=== PATIENT | female | born 1940 | race Caucasian/White ===

== ENCOUNTER 2017-07-06 10:15 | Emergency (ER) | payer MEDICARE, OTHER ==
[2017-07-06] MEDS ORDERED: Lorazepam 2 MG/ML VIAL ONE ×2 (12:09→12:42)
--- NOTE | 2017-07-06 15:48 | MRI ---
MRI CERVICAL SPINE WITHOUT CONTRAST: Date: 07/06/17 Multiplanar, multisequential imaging of cervical spine obtained. INDICATION: Recent neck injury. CT showed severe degenerative changes of cervical spine with subluxations. Slight flaring of the spinous processes at C3-4 was noted. Exam performed to assess for ligamentous injury. FINDINGS: Motion artifact severely degrades the exam. The cervical vertebra maintain height. There are subluxat ions again seen as described on the CT. On the STIR sequence, no significant edema is seen within the interspinous ligaments or supraspinous ligament. No evidence of edema seen along either the anterior or posterior longitudinal ligament. There is evidence of edema within the C5 and C6 vertebra on STIR sequence. This could represent qureshi es from acute compression as both of these show some mild height loss, or this edema could also repre sent chronic end plate change. A lack of edema within the interspinous ligaments and along the anterior or posterior longitudinal li gament would suggest that the cervical spine findings are chronic and there is no evidence of acute l igamentous injury. The spondylytic changes do impinge on the cord, most pronounced at C4-5 due to the subluxation. IMPRESSION: 1. No evidence of edema in the interspinous ligaments or along the anterior and posterior longitudin al ligament. 2. There is increased signal on STIR sequence within the C5 and C6 vertebra. This could represent ac carlos compression. This high signal could also represent edema from chronic end plate degenerative britton ge. POS: [facility]
== END 2017-07-06 17:46 | disposition home or self-care (01) ==
LOC: ERS 10:15
DX: M48.32 Traumatic spondylopathy, cervical region (principal); I10 Essential (primary) hypertension; E78.5 Hyperlipidemia, unspecified; F32.9 Major depressive disorder, single episode, unspecified; G30.9 Alzheimer's disease, unspecified; F02.80 Dementia in other diseases classified elsewhere, unspecified severity, without behavioral disturbance, psychotic disturbance, mood disturbance, and anxiety; Z79.82 Long term (current) use of aspirin; Z79.899 Other long term (current) drug therapy; Z86.73 Personal history of transient ischemic attack (TIA), and cerebral infarction without residual deficits; W19.XXXA Unspecified fall, initial encounter
CPT/HCPCS: 72141; 96372; 96374; 96375; 96376; J2060

== ENCOUNTER 2017-07-15 10:59 | Inpatient (IN) | payer MEDICARE, OTHER ==
[2017-07-15 12:10] LABS: #Lymphocytes 0.6 thou/uL (1.20-3.40); #Monocytes 0.6 thou/uL (0.11-0.59); #Neutrophils 10.7 thou/uL (1.40-6.50); %Basophils 0.1 % (0.0-1.0); %Eosinophils 0.2 % (0.0-10.0); %Lymphocytes 5.3 % (21.0-51.0); %Monocytes 4.7 % (0.0-10.0); %Neutrophils 89.8 % (42.0-75.0); Hemoglobin 8.8 g/dL (12.0-16.0); Mean Corpuscular HGB CONC 32.7 g/dL (32.0-36.0); Mean Corpuscular Volume 97.8 fl (81.0-99.0); Mean Platelet Volume 6.2 fL (7.4-10.4); Platelet Count 328 thou/uL (130-400); RBC Distribution Width 12.5 % (11.5-14.5); Red Blood Cell (RBC) Count 2.74 mill/uL (4.20-5.40); White Blood Cell (WBC) Count 11.9 thou/uL (4.8-10.8)
--- NOTE | 2017-07-15 12:21 | RAD ---
AP PELVIS: Date: 07/15/17 HISTORY: Injury, right hip pain. FINDINGS/IMPRESSION: There is an impacted fracture involving the neck of the right femur with associated foreshortening. POS: [facility]
[2017-07-15 12:30] LABS: Bilirubin Negative (Negative); Blood, Urine Negative (Negative); Clarity CLEAR (Clear); Glucose, Urine (Dipstick) Negative (Negative); Leukocyte Negative (Negative); Nitrite Negative (Negative); Protein, Urine (Dipstick) 30 mg/dL (Neg-Trace); Specific Gravity, Urine 1.018 (1.002-1.036); Urobilinogen 0.2 mg/dL (0.2-1.0)
[2017-07-15 12:31] LABS: Bacteria/HPF None Seen HPF (None Seen); Hyaline Casts/LPF 0-3 HYALINE CAST LPF (0-3 Hyaline); Pathc Cast-AUWi Flag 0.14 (0-2.49); RBC/HPF 0-3 HPF (0-3); Squamous Epithelial 0-3 HPF (0-3); WBC/HPF 0-3 HPF (0-3)
[2017-07-15 12:36] LABS: ALT (SGPT) 12 U/L (8-55); AST (SGOT) 20 U/L (5-34); Albumin 3.6 g/dL (3.4-4.8); Alkaline Phosphatase 85 U/L (40-150); Anion Gap 14 mmol/L (10-20); BUN (Urea Nitrogen) 31 mg/dL (9.8-20.1); Bilirubin, Total 0.4 mg/dL (0.2-1.2); Calc. Creatinine Clearance 0 mL/min (70-130); Calcium 9.2 mg/dL (7.8-10.44); Carbon Dioxide 23 mmol/L (23-31); Chloride 101 mmol/L (98-107); Estimated GFR-MDRD 24; Globulin 3.1 g/dL (2.4-3.5); Glucose 132 mg/dL (83-110); Potassium 4.6 mmol/L (3.5-5.1); Protein, Total 6.7 g/dL (6.0-8.3); Sodium 133 mmol/L (136-145)
--- NOTE | 2017-07-15 12:39 | RAD ---
TWO VIEWS RIGHT KNEE: History: Trauma. Right knee pain. FINDINGS: AP, lateral, and oblique views demonstrate a right knee arthroplasty. Femoral and tibial components a re in good position. No evidence of fractures or loosening seen. IMPRESSION: No evidence of acute right knee abnormalities in a patient with previous arthroplasty. POS: [facility]
--- NOTE | 2017-07-15 12:40 | RAD ---
TWO VIEWS RIGHT HIP: History: Fall. FINDINGS: AP and lateral views demonstrate a displaced partially impacted right femoral neck fracture. There is upward migration of the distal fracture fragment. Displaced complete right femoral neck fracture. POS: [facility]
--- NOTE | 2017-07-15 12:41 | RAD ---
AP AND LATERAL RIGHT FEMUR: History: Fall. Right hip pain. FINDINGS: Images demonstrate a right knee arthroplasty. There is an acute fracture involving the right femoral neck. There is upward migration of the distal fracture fragment. IMPRESSION: Complete right femoral neck fracture. POS: [facility]
--- NOTE | 2017-07-15 12:43 | RAD ---
AP VIEW CHEST: INDICATIONS: History of fall and chest pain. COMPARISON: Prior exam, 05/03/2014. FINDINGS: There is a patchy area of opacity, which is new, within the region of the lingula, which may reflect an area of contusion or possible infiltrate. Chronic lung changes are similar. Cardiomegaly is petra lar. Osseous structures are unchanged. IMPRESSION: Patchy opacity within the region of the lingula, which may reflect contusion or pneumonia. Recommend correlation. Radiographic followup to resolution is recommended. POS: [facility]
[2017-07-15] MEDS ORDERED: CEFAZOLIN/Water 2 GM/20 ML SYRINGE SLOW IVP SCH (14:30)
--- NOTE | 2017-07-15 14:39 | HP ---
DATE OF ADMISSION: 07/15/2017 ADMITTING PHYSICIAN: Dr. Casey. CONSULTING PHYSICIANS: 1. Dr. Sanchez, Orthopedics. 2. Hospital Medicine Service. HISTORY OF PRESENT ILLNESS: Ms. Joseph is a 77-year-old female who presented approximately 1 week ago to [facility] after a ground level fall. She was then transferred to [facility] with complaints of neck pain. She was found to have a C3-4 subluxation. She was placed in an [place] cervical collar and discharged back home to her previous living situation in an assisted living facility in [place], [place]. She had no neurological deficits. She was to follow up with Neurosurgery on 07/23/2017. Her daughter reports that she had another fall last night and was taken [facility] and then discharged home. She continued to complain of right hip pain. She was then transported to [facility] in [place] where right femoral neck fracture was identified. Her daughter reports that she fell twice last p.m. prior to being transported to the hospital. She is noted to have old bruising across her face and upper extremities. She does complain of right hip pain which is exacerbated by movement. Trauma Services was consulted for admission and management. Dr. Sanchez, Orthopedic has been consulted by the ER physician and plans to take the patient to the OR later today. PAST MEDICAL HISTORY: 1. Hyperlipidemia. 2. High cholesterol. 3. Hypertension. 4. Alzheimer's dementia. 5. Ischemic cerebrovascular accident. 6. Transient ischemic attack. PAST SURGICAL HISTORY: 1. Cholecystectomy. 2. Orthopedic surgery, bilateral knees and right ankle. PSYCHIATRIC HISTORY: Depression. SOCIAL HISTORY: Lives in a assisted living home in [place]. Denies alcohol, drug or tobacco use. CURRENT MEDICATIONS: 1. Aricept 10 mg once daily. 2. Plavix 75 mg once daily. 3. Aspirin 81 mg once daily. 4. Fexofenadine 180 mg once daily. 5. Lisinopril 5 mg once daily. 6. Namenda 5 mg twice daily. 7. Omeprazole 20 mg once daily. 8. One Daily women vitamin 400 mcg/120 mg once daily. 9. Quetiapine 25 mg twice daily. 10. Biotin 500 mcg 2 capsules once daily. 11. Simvastatin 20 mg once daily. 12. Vitamin D3 1000 units once daily. 13. Mucinex DM 600 mg/30 mg as needed. 14. Advair Diskus 250 mcg/50 mcg once daily. 15. Sertraline 100 mg once daily. 16. Lorazepam 2 mg every 6 hours. ALLERGIES: 1. PENICILLIN. 2. SUDAFED. IMAGING DATA: EKG normal sinus rhythm. LABORATORY DATA: Hematology: WBC 11.9, RBC 2.74, hemoglobin 8.8, hematocrit 26.8, platelets 328. Chemistry: Sodium 133, potassium 4.6, chloride 101, carbon dioxide 23, BUN 31, creatinine 1.98 and glucose 132. DIAGNOSTIC IMAGING: Partially impacted right femoral neck fracture. REVIEW OF SYSTEMS: Unable to obtain. PHYSICAL EXAMINATION: VITAL SIGNS: Blood pressure 127/84, pulse 85, respirations 16, temperature 98.3 , O2 sat 93% on 2 liters O2. CONSTITUTIONAL: Elderly female lying in bed in no acute distress, nontoxic appearing. HEENT: Contusion in various stages of healing over left forehead. Cervical collar in place. NECK: Trachea midline. RESPIRATORY: Bilateral breath sounds clear. No respiratory distress. Chest wall movement symmetrical. CARDIOVASCULAR: Regular rate and rhythm. Heart sounds normal. ABDOMEN: Soft, nontender and nondistended. Bowel sounds normal. Tenderness over right hip with palpation. GENITOURINARY: Hernandez catheter in place with clear edgar urine. MUSCULOSKELETAL: Pain with movement to right hip. Neurovascularly intact to all extremities. Cap refill brisk in all extremities. 2+ pulses in all extremities. NEUROLOGIC: GCS 14. The patient alert to person and place only. ASSESSMENT AND PLAN: 1. Ground level fall. 2. Right femoral neck fracture. 3. Multiple recent falls. 4. Fall with recent C3-4 subluxation, currently managed in cervical collar. 5. Acute traumatic pain. 6. Chronic kidney disease, present on admission. 7. History of cerebrovascular accident. The patient is currently on Plavix and aspirin. PLAN: 1. Admit to hospital by Trauma Services. 2. Consult to Dr. Sanchez, Orthopedics. 3. Consult to hospital medicine for medical management. 4. Plan for OR with Dr. Sanchez. 5. Hold antiplatelet medications. 6. Restart home medications as appropriate. 7. IV fluids and IV Tylenol for analgesia 8. N.p.o. 9. SCDs for DVT prophylaxis. 10. Pepcid for gastritis prophylaxis. 11. Morphine for breakthrough pain. Patient was reviewed with Dr. Casey who agrees with plan. MTDD
[2017-07-15] MEDS ORDERED: Fentanyl 100 MCG/2 ML VIAL ONE (16:44)
[2017-07-15] MEDS ORDERED: Acetaminophen 1,000 MG in Premix Bag 1 BAG IVPB SCH (18:30)
[2017-07-15] MEDS ORDERED: Dextrose 5% in Water 1,000 ML IV PRN (18:30)
[2017-07-15] MEDS ORDERED: Dextrose 50% Abboject 50 ML SYRINGE SLOW IVP PRN (18:30)
[2017-07-15] MEDS ORDERED: hydrALAZINE 20 MG/ML VIAL SLOW IVP PRN (18:30)
[2017-07-15] MEDS ORDERED: Sodium Chloride 0.9% 500 ML IV SCH (18:45)
[2017-07-15] MEDS: Morphine 4 MG/ML VIAL SLOW IVP PRN (18:54)
--- NOTE | 2017-07-15 19:05 | CON ---
DATE OF CONSULTATION: 07/15/2017 REQUESTING PHYSICIAN: Dr. Ankita Foy. CONSULTING PHYSICIAN: Dr. Garham Sanchez. REASON FOR CONSULTATION: Right hip fracture. HISTORY OF PRESENT ILLNESS: This is a 77-year-old female who is a resident of an assisted living [facility] who reportedly fell last night in her room while getting up from her bed to get to the bathroom . History is obtained from family at bedside including patient's daughter and patient's son. The pa lynne has a history of Alzheimer's dementia. Family report that she slept in her recliner carole danielle [employer]. She continued to complain of right hip pain this morning after she had breakfast around 08:00. S he was then sent by ambulance to the [facility]. She has been transferred to [facility] in [place] for further evaluation of her right hip fracture. Remainder of history is limi panchito secondary to patient's dementia. PAST MEDICAL HISTORY: Includes history of CVA, TIAs, hypertension, hyperlipidemia, Alzheimer disease . PAST SURGICAL HISTORY: Cholecystectomy, , bilateral total knee replacements, right ankle amaya rgery. SOCIAL HISTORY: The patient lives in an assisted living facility. Family denies any alcohol use, dr ug use or smoking history. She normally ambulates with a rolling walker. REVIEW OF SYSTEMS: Unobtainable secondary to underlying dementia as stated above. PHYSICAL EXAMINATION: VITAL SIGNS: Blood pressure of 133/79, pulse of 87, respiratory rate of 16, temperature 98.6 degrees , O2 saturation is 98% on 2 liters of oxygen. GENERAL: The patient is awake and alert. She is pleasant and cooperative with exam today. She is o riented to self. HEENT: Shows a contusion to her left frontal region with hematoma. NECK: Shows a C-collar in place. RESPIRATORY: Breathing is nonlabored. EXTREMITIES: The right lower extremity shows shortening with external rotation. There is some bruis ing to the anterior aspect of the right knee. Patient able to actively move toes and ankle and the r ight lower extremity. Sensation intact. Motor strength normal. The remainder of extremity exam is otherwise unremarkable. RADIOGRAPHIC FINDINGS: Including views of the right hip show evidence for a femoral neck fracture wh ich is displaced and impacted. X-ray findings were reviewed with Dr. Sanchez and myself today. IMPRESSION: Right femoral neck fracture with displacement and impaction. PLAN: Options discussed for treatment with the patient's family at bedside today. Family wishes to proceed with surgical intervention due to the patient's activity level. They report concerns that buck weiss has short term memory loss and frequently gets out of bed without regard to injuries. They would l mechelle her hip as stable as possible. We have discussed a right hip hemiarthroplasty in order to give h er stability and that she may weightbear as tolerated. Risks including infection, blood clots, malun ion, nonunion and neurovascular compromise were discussed at length with the patient's family today. They verbalized understanding. We will proceed with a right hip hemiarthroplasty for right femoral neck fracture. They are in agreement with the plan of care.
[2017-07-15] MEDS: Famotidine/PF 20 mg/2ml Vial SLOW IVP SCH (20:52)
[2017-07-15 22:25] VITALS: BMI 29.0
--- NOTE | 2017-07-16 00:33 | HP ---
CHIEF COMPLAINT: Fall with right hip pain. HISTORY: The patient is a 77-year-old female with Alzheimer's dementia who lives in an assisted care facility. She has fallen 3 times in the last 2 weeks. Recently, she had a C3-C4 subluxation, was p laced in an [place] collar, discharged home. She also had a closed head injury that showed no abnormal ity on the scan. Today, she tried to get out of bed and fell on her hip. This was not witnessed. S he was found on the floor. PAST MEDICAL HISTORY: Significant for hyperlipidemia, hypertension, Alzheimer's dementia, transient ischemic attacks, and a previous cerebrovascular accident. PAST SURGICAL HISTORY: Include cholecystectomy, bilateral total knee replacement, ankle surgery. MEDICATIONS: Aricept, Plavix, aspirin, fexofenadine, lisinopril, Namenda, omeprazole, multivitamins, quetiapine, biotin, simvastatin, vitamin D, Mucinex, Advair, sertraline, lorazepam. ALLERGIES: PENICILLIN AND SUDAFED. SOCIAL HISTORY: She has a son who is here giving me the history. She lives in the assisted living. No tobacco or alcohol. PHYSICAL EXAMINATION: VITAL SIGNS: Temperature 98.9, pulse 87, blood pressure 147/82. GENERAL: She is lethargic. She will open her eyes to command. She moans. She has some bruising ar ound her face. HEENT: Pupils equal, round, and reactive. Extraocular motor intact. Pharynx clear. NECK: Her neck is in a cervical collar. Mild tenderness posterior. Clavicles are unremarkable. LUNGS: Clear. CHEST: No chest tenderness. ABDOMEN: Soft, nondistended, nontender. PELVIS: Unremarkable. She is tender in the right hip. Left hip is fine. EXTREMITIES: Otherwise unremarkable. Knee shows the previous total knee replacement, otherwise unre markable. DIAGNOSTIC DATA: Her pelvic x-ray showed impacted fracture of the neck of the right femur with fores hortening. Femur showed this complete right femoral neck fracture confirmed by the 2 views of the hi p. Chest x-ray showed some patchy opacity in the lingula consistent with possible contusion or pneum onia. ASSESSMENT: Right hip fracture. PLAN: Per Orthopedics. I would recommend medical consultation.
[2017-07-16] MEDS: Sodium Chloride 0.9% 1,000 ML IV SCH ×3 (01:26→20:40)
--- NOTE | 2017-07-16 02:12 | PDOC.PN ---
- Subjective Encounter Start Date: 07/15/17 Encounter Start Time: 21:00 Subjective: no sob or chest pain -: son at bedside - Objective Resuscitation Status: Resuscitation Status FULL:Full Resuscitation MAR Reviewed: Yes Vital Signs & Weight: Vital Signs (12 hours) Temp Pulse Resp BP Pulse Ox 07/15/17 23:40 98.8 F 90 20 146/67 H 93 L 07/15/17 20:20 98.1 F 81 16 127/67 92 L 07/15/17 20:00 98.8 F 90 20 92 L 07/15/17 18:20 98.9 F 87 18 147/82 H 94 L Weight Weight 185 lb Result Diagrams: 07/15/17 11:56 07/15/17 11:56 Phys Exam - Physical Examination HEENT: PERRLA, sclera anicteric Neck: no JVD, supple Respiratory: no wheezing, no rales Cardiovascular: RRR, no significant murmur Gastrointestinal: soft, no distention, positive bowel sounds Musculoskeletal: no edema, pulses present Neurological: non-focal, moves all 4 limbs Dx/Plan (1) Closed right hip fracture Code(s): S72.001A - FRACTURE OF UNSP PART OF NECK OF RIGHT FEMUR, INIT Status : Acute (2) CATHY (acute kidney injury) Code(s): N17.9 - ACUTE KIDNEY FAILURE, UNSPECIFIED Status: Acute (3) HTN (hypertension) Code(s): I10 - ESSENTIAL (PRIMARY) HYPERTENSION Status: Chronic Qualifiers: Hypertension type: essential hypertension Qualified Code(s): I10 - Essential (primary) hypertension (4) Dyslipidemia Code(s): E78.5 - HYPERLIPIDEMIA, UNSPECIFIED Status: Chronic (5) Dementia Code(s): F03.90 - UNSPECIFIED DEMENTIA WITHOUT BEHAVIORAL DISTURBANCE Status: Chronic Qualifiers: Dementia type: Alzheimer's disease Dementia behavioral disturbance: without behavioral disturbance (6) Chronic anemia Code(s): D64.9 - ANEMIA, UNSPECIFIED Status: Chronic (7) Subluxation of C3-C4 cervical vertebrae Code(s): S13.140A - SUBLUXATION OF C3/C4 CERVICAL VERTEBRAE, INITIAL ENCOUNTER Status: Acute - Plan gentle iv hydration, bmp/cbc in am -: hold asp, lisinopril and plavix -: start lopressor 25mg bid and seroquel 25mg bid from am -: is going for surgery in am, morphine prn -: d/w son at bedside. May require transfusion * . Review of Systems - Medications/Allergies Allergies/Adverse Reactions: Allergies Allergy/AdvReac Type Severity Reaction Status Date / Time pseudoephedrine HCl Allergy Mild Verified 07/15/17 21:43 [From [facility]] Penicillins Allergy Verified 07/15/17 21:43 Medications: Current Medications Cefazolin Sodium (Ancef) 2 gm SLOW IVP ONCALL-OR RANDI Stop: 07/16/17 14:31 Dextrose/Water (Dextrose 50%) 25 gm SLOW IVP PRN PRN PRN Reason: Hypoglycemia Famotidine (Pepcid) 20 mg SLOW IVP QPM RANDI Last Admin: 07/15/17 20:52 Dose: 20 mg Glucagon (Glucagon) 1 mg IM PRN PRN PRN Reason: Hypoglycemia Hydralazine HCl (Apresoline) 10 mg SLOW IVP Q4H PRN PRN Reason: SBP > 170 or DBP > 100 Dextrose/Water (D5w) 1,000 mls @ 0 mls/hr IV .Q0M PRN; As Directed PRN Reason: Hypoglycemia Sodium Chloride (Normal Saline 0.9%) 1,000 mls @ 100 mls/hr IV .Q10H RANDI Last Admin: 07/16/17 01:26 Dose: Not Given Acetaminophen 1,000 mg/ Device 100 mls @ 400 mls/hr IVPB 0300,0900,1500,2100 RANDI Stop: 07/16/17 21:01 Morphine Sulfate (Morphine) 2 mg SLOW IVP Q4H PRN PRN Reason: Mild Pain (1-3) Last Admin: 07/15/17 18:54 Dose: 2 mg Sodium Chloride (Flush - Normal Saline) 10 ml IVF PRN PRN PRN Reason: Saline Flush
[2017-07-16] MEDS: Acetaminophen 1,000 MG in Premix Bag 1 BAG IVPB SCH ×3 (03:38→20:13)
[2017-07-16 06:12] LABS: Anion Gap 12 mmol/L (10-20); BUN (Urea Nitrogen) 29 mg/dL (9.8-20.1); Calc. Creatinine Clearance 34 mL/min (70-130); Calcium 8.8 mg/dL (7.8-10.44); Carbon Dioxide 22 mmol/L (23-31); Chloride 104 mmol/L (98-107); Estimated GFR-MDRD 27; Glucose 108 mg/dL (83-110); Magnesium 2.1 mg/dL (1.6-2.6); Phosphorus 3.2 mg/dL (2.3-4.7); Potassium 4.6 mmol/L (3.5-5.1)
[2017-07-16 06:13] LABS: Sodium 133 mmol/L (136-145)
[2017-07-16] MEDS ORDERED: Clindamycin/D5W 900 mg/50 ml Premix Bag ONE (06:27)
[2017-07-16] MEDS ORDERED: Levofloxacin 500 mg/D5W 100 ml Premix Bag ONE (06:27)
[2017-07-16] MEDS ORDERED: Fentanyl 250 MCG/5 ML VIAL ONE (07:27)
[2017-07-16 07:43] LABS: Band 7 % (5-11); Eosinophils 1 % (0-10); Hemoglobin 8.3 g/dL (12.0-16.0); Lymphocytes 4 % (21-51); MDiff Complete? YES; Mean Corpuscular HGB CONC 32.8 g/dL (32.0-36.0); Mean Corpuscular Hemoglobin 32.2 pg (27.0-31.0); Monocytes 7 % (0-10); Neutrophil 79 % (42-75); PLT Morphology Comment Appears Adequate; Platelet Count 279 thou/uL (130-400); Polychromasia SLIGHT = 2-3 cells (100X) (0-2/hpf); Red Blood Cell (RBC) Count 2.59 mill/uL (4.20-5.40); White Blood Cell (WBC) Count 10.8 thou/uL (4.8-10.8)
[2017-07-16] MEDS ORDERED: Promethazine HCl 25 MG/ML VIAL IM PRN (09:57)
[2017-07-16] MEDS ORDERED: Ondansetron HCl/PF 4 MG/2 ML Vial IVP PRN ×2 (09:57→20:07)
[2017-07-16] MEDS ORDERED: Promethazine HCl 25 MG/ML VIAL SLOW IVP PRN (09:57)
[2017-07-16] MEDS ORDERED: Fentanyl 100 MCG/2 ML VIAL ONE (11:10)
[2017-07-16 12:11] LABS: #Basophils 0.1 thou/uL (0.0-0.2); #Lymphocytes 0.3 thou/uL (1.20-3.40); #Monocytes 0.5 thou/uL (0.11-0.59); #Neutrophils 13.9 thou/uL (1.40-6.50); %Basophils 0.6 % (0.0-1.0); %Eosinophils 0.2 % (0.0-10.0); %Lymphocytes 2.2 % (21.0-51.0); %Monocytes 3.4 % (0.0-10.0); %Neutrophils 93.6 % (42.0-75.0); Hemoglobin 7.3 g/dL (12.0-16.0); Mean Corpuscular HGB CONC 32.7 g/dL (32.0-36.0); Mean Corpuscular Hemoglobin 32.2 pg (27.0-31.0); Mean Corpuscular Volume 98.3 fl (81.0-99.0); Mean Platelet Volume 6.8 fL (7.4-10.4); Platelet Count 249 thou/uL (130-400); RBC Distribution Width 12.6 % (11.5-14.5); Red Blood Cell (RBC) Count 2.26 mill/uL (4.20-5.40); White Blood Cell (WBC) Count 14.9 thou/uL (4.8-10.8)
--- NOTE | 2017-07-16 12:15 | RAD ---
RIGHT HIP THREE VIEWS: Indication: Post op follow up. Total hip replacement. FINDINGS/IMPRESSION: Post op changes are noted with lateral skin sree. Prosthesis has been placed. Components appear in adequate position and alignment. POS: [facility]
--- NOTE | 2017-07-16 12:46 | OP ---
DATE OF SURGERY: 07/16/2017. PREOPERATIVE DIAGNOSIS: Right femoral neck fracture. POSTOPERATIVE DIAGNOSIS: Right femoral neck fracture. SURGICAL PROCEDURE: Right hip hemiarthroplasty. ANESTHESIA: General. SURGEON: Graham Sanchez M.D. HAND HARDENER: Wicho Pickett PA-C. BLOOD LOSS: 300 mL. IMPLANTS: DePuy Ciales size 5 stem, a +5 head and a 28 x 48 bipolar cup. COMPLICATIONS: None. DRAINS: None. SPECIMEN: None. OUTCOME: Satisfactory. INDICATIONS: The patient is a 77-year-old lady status post ground level fall sustaining a femoral ne ck fracture. After discussion with patient and her family, we have decided to proceed with hemiarthr oplasty to provide pain relief and improve mobility. Informed consent has been obtained. I believe all questions have been answered. DESCRIPTION OF PROCEDURE: The patient was brought to the operating room and timeout performed follow ed by the induction of general anesthesia. The patient was then positioned in a left lateral decubit us position and a sterile prep and drape was performed of the right lower extremity. Next, a standar d lateral skin incision was made centered over the greater trochanter after skin was sharply incised. Dissection was carried through the subcutaneous fat down to the tensor fascia and fascia michael. The structure was incised in line with the skin incision and then a Charnley retractor placed in the wou nd. The trochanteric bursa was swept off the short external rotators and then an elevator was passed under the abductors exposing the piriformis tendon. The piriformis was divided along with the super ior and inferior gemelli. These structures were tagged and retracted posteriorly. Next, a T capsulo kari was performed. It should be noted that the capsule did have multiple holes perforations through it consistent with this acute fracture. Once the edges of the capsule were tagged, the femoral head was removed with a T handle corkscrew device. Next, the calcar area was inspected both visually and by palpation. Her fracture extended quite a ways down the calcar heading towards the lesser trochan ter. As such, a femoral neck cut was performed, but with this compromise of the calcar region, it wa s decided to proceed with a cemented implant. Next, a T handle awl was passed down the canal of the femur followed by lateralizing reamer and progressive T handle granda up to a size 7 were used. Shantel sidhu was then started at size 3 and continued up to size 5, which gave a reasonable fit and fill and did not place the proximal femur at further risk for fracture. A trial reduction was then performed that showed a +5 head that gave good voodoo of leg lengths and stability. Next, the trial compo nents were removed from the femur. The wound was irrigated with 3 liters of normal saline including the canal. Cement was then prepared. Next, the size 5 stem was cemented in place. Once the cement had fully cured and excess cement removed, bipolar head was applied to the stem and the hip reduced. Again, she had reasonably good stability with this construct. The wound was then closed in layers w ith #2 Vicryl for the repair of the capsule and short external rotators followed by #2 Vicryl for the tensor fascia. That was then followed by 2-0 Vicryl for Inder's fascia, 2-0 Vicryl subcutaneously, and sree for the skin. A Xeroform gauze and tape dressing was then applied to the thigh. The kelvin batista was then transferred to recovery room in stable condition. There were no complications. Jesicaabhishek emery tolerated the procedure well.
[2017-07-16] MEDS ORDERED: PHENYLEPHRINE-NS 100 MCG/ML 10 ML SYRINGE ONE (15:15)
[2017-07-16] MEDS ORDERED: Glycopyrrolate 0.2 MG/ML 5 ML SYRINGE ONE (15:15)
[2017-07-16] MEDS ORDERED: Dexamethasone 20 MG/5 ML VIAL ONE (15:15)
[2017-07-16] MEDS ORDERED: PROPOFOL 200 MG/20 ML VIAL ONE (15:15)
--- NOTE | 2017-07-16 17:39 | PDOC.PN ---
- Subjective Encounter Start Date: 07/16/17 Encounter Start Time: 17:37 Subjective: post op pleasantly confused - Objective Resuscitation Status: Resuscitation Status FULL:Full Resuscitation MAR Reviewed: Yes Vital Signs & Weight: Vital Signs (12 hours) Temp Pulse Resp BP Pulse Ox 07/16/17 16:00 97.6 F 105 H 16 119/71 94 L Weight Weight 185 lb I&O: 07/15/17 07/16/17 07/17/17 06:59 06:59 06:59 Intake Total 1640 Output Total 800 Balance 840 Result Diagrams: 07/16/17 11:31 07/16/17 04:37 Phys Exam - Physical Examination Neck: no JVD Respiratory: clear to auscultation bilateral Cardiovascular: RRR, no significant murmur Gastrointestinal: soft, non-tender, positive bowel sounds Musculoskeletal: no edema Dx/Plan (1) CATHY (acute kidney injury) Code(s): N17.9 - ACUTE KIDNEY FAILURE, UNSPECIFIED Status: Acute (2) Closed right hip fracture Code(s): S72.001A - FRACTURE OF UNSP PART OF NECK OF RIGHT FEMUR, INIT Status : Acute Plan: post op orif (3) Chronic anemia Code(s): D64.9 - ANEMIA, UNSPECIFIED Status: Chronic (4) Dementia Code(s): F03.90 - UNSPECIFIED DEMENTIA WITHOUT BEHAVIORAL DISTURBANCE Status: Chronic Qualifiers: Dementia type: Alzheimer's disease Dementia behavioral disturbance: without behavioral disturbance (5) Dyslipidemia Code(s): E78.5 - HYPERLIPIDEMIA, UNSPECIFIED Status: Chronic (6) HTN (hypertension) Code(s): I10 - ESSENTIAL (PRIMARY) HYPERTENSION Status: Chronic Qualifiers: Hypertension type: essential hypertension Qualified Code(s): I10 - Essential (primary) hypertension - Plan tachycardia, Hg 7.3- transfuse 1 u prbc -: CBC, BMP in AM -: DNR- discussed with patient and son * .
--- NOTE | 2017-07-16 17:41 | PDOC.EVN ---
Event Note - Event Note Event Note: previous DNR note is in error
--- NOTE | 2017-07-16 19:59 | PRG ---
DATE OF SERVICE: 07/16/2017 ATTENDING PHYSICIAN: Dr. Oakes. SUBJECTIVE: Ms. Joseph is a 77-year-old female who was admitted one day ago with a right hip fractu re, status post ground level fall. She has been taken to the OR today for repair of fracture with Or thopedic Surgery. Postoperatively, in the PACU, she had tachycardia up to 120s. I was notified by A nesthesia who reports that she had remained tachycardic from 100-120. EKG showed sinus tachycardia. She was then admitted to telemetry unit. She is now seen postoperatively. She is awake and alert. She reports pain is well controlled. OBJECTIVE: VITAL SIGNS: Temperature 97.6, pulse 105, respirations 16, O2 sat 94% on 2 liters, blood pressure 11 9/71. GENERAL: Elderly female, lying in bed, in no acute distress, nontoxic appearing. HEENT: Atraumatic, normocephalic. CARDIOVASCULAR: The patient with tachycardia at 105. Heart sounds normal. LUNGS: Respirations are even and unlabored. No respiratory distress. ABDOMEN: Soft, nontender, nondistended. EXTREMITIES: Surgical dressing in place to right hip. Cap refill brisk in all extremities. Neurova scular intact all extremities. NEUROLOGIC: GCS 14. The patient remained slightly confused. Oriented to person and time. PERTINENT LABORATORY DATA: Hemoglobin 7.3. ASSESSMENT: 1. Status post ground level fall. 2. Postoperative day #0, status post open reduction and internal fixation, right hip. 3. Multiple recent falls. 4. Hemoglobin trending down, 7.3 this morning. Transfuse 1 unit PRBCs. 5. Followed by Hospital Medicine. I appreciate recommendations. 6. Fall with recent C3-4 subluxation, currently managed in cervical collar. PLAN: 1. Continue antibiotics as ordered per Orthopedic Service. 2. Continue scheduled Tylenol with morphine for breakthrough pain. 3. Transfuse 1 unit PRBCs. Ordered by Hospital Medicine. 4. Trend labs in a.m. 5. Physical and occupational therapy to start tomorrow. 6. Pepcid for gastritis prophylaxis. 7. Case management for discharge planning. Anticipate patient will discharge back to her original l iving situation at assisted living facility. The patient was reviewed with Dr. Oakes who agrees with plan.
[2017-07-16] MEDS ORDERED: Ondansetron ODT 4 MG TAB PO PRN (20:07)
[2017-07-16] MEDS: Clindamycin/D5W 900 MG in Premix Bag 1 BAG IVPB SCH (20:13)
[2017-07-17] MEDS: Morphine 4 MG/ML VIAL SLOW IVP PRN ×3 (00:50→12:08)
[2017-07-17] MEDS: Clindamycin/D5W 900 MG in Premix Bag 1 BAG IVPB SCH ×2 (00:52→05:25)
[2017-07-17] MEDS: Famotidine/PF 20 mg/2ml Vial SLOW IVP SCH (01:06)
[2017-07-17] MEDS: Acetaminophen 1,000 MG in Premix Bag 1 BAG IVPB SCH (01:14)
[2017-07-17] MEDS: Sodium Chloride 0.9% 1,000 ML IV SCH ×2 (05:25→16:48)
[2017-07-17 05:54] LABS: #Lymphocytes 1.6 thou/uL (1.20-3.40); #Neutrophils 5.9 thou/uL (1.40-6.50); %Basophils 0.2 % (0.0-1.0); %Eosinophils 0.2 % (0.0-10.0); %Monocytes 11.1 % (0.0-10.0); %Neutrophils 69.5 % (42.0-75.0); Hemoglobin 7.5 g/dL (12.0-16.0); Mean Corpuscular HGB CONC 33.1 g/dL (32.0-36.0); Mean Corpuscular Hemoglobin 31.6 pg (27.0-31.0); Mean Corpuscular Volume 95.4 fl (81.0-99.0); Mean Platelet Volume 6.5 fL (7.4-10.4); Platelet Count 251 thou/uL (130-400); RBC Distribution Width 14.3 % (11.5-14.5); Red Blood Cell (RBC) Count 2.37 mill/uL (4.20-5.40); White Blood Cell (WBC) Count 8.5 thou/uL (4.8-10.8)
[2017-07-17 06:05] LABS: Anion Gap 10 mmol/L (10-20); BUN (Urea Nitrogen) 27 mg/dL (9.8-20.1); Calc. Creatinine Clearance 36 mL/min (70-130); Calcium 7.9 mg/dL (7.8-10.44); Carbon Dioxide 24 mmol/L (23-31); Chloride 104 mmol/L (98-107); Estimated GFR-MDRD 29; Glucose 96 mg/dL (83-110); Potassium 4.6 mmol/L (3.5-5.1); Sodium 133 mmol/L (136-145)
[2017-07-17 10:00] LABS: Magnesium 1.8 mg/dL (1.6-2.6); Phosphorus 3.8 mg/dL (2.3-4.7)
--- NOTE | 2017-07-17 11:26 | PDOC.PN ---
- Subjective Encounter Start Date: 07/17/17 Encounter Start Time: 11:25 Subjective: alert, no complaints - Objective Resuscitation Status: Resuscitation Status FULL:Full Resuscitation MAR Reviewed: Yes Vital Signs & Weight: Vital Signs (12 hours) Temp Pulse Pulse Resp BP BP Pulse Ox 07/17/17 08:00 98.6 F 77 20 133/88 97 07/17/17 04:00 99.1 F 86 22 H 100/61 95 07/17/17 00:00 98 07/16/17 23:30 98.5 F 90 90 20 128/58 L 128/58 L 98 Weight Weight 185 lb I&O: 07/16/17 07/17/17 07/18/17 06:59 06:59 06:59 Intake Total 1640 400 Output Total 800 Balance 840 400 Result Diagrams: 07/17/17 05:21 07/17/17 05:21 Phys Exam - Physical Examination Neck: no JVD Respiratory: clear to auscultation bilateral Cardiovascular: RRR, no significant murmur Gastrointestinal: soft, non-tender, positive bowel sounds Musculoskeletal: edema present Dx/Plan (1) CATHY (acute kidney injury) Code(s): N17.9 - ACUTE KIDNEY FAILURE, UNSPECIFIED Status: Acute (2) Closed right hip fracture Code(s): S72.001A - FRACTURE OF UNSP PART OF NECK OF RIGHT FEMUR, INIT Status : Acute (3) Chronic anemia Code(s): D64.9 - ANEMIA, UNSPECIFIED Status: Chronic (4) Dementia Code(s): F03.90 - UNSPECIFIED DEMENTIA WITHOUT BEHAVIORAL DISTURBANCE Status: Chronic Qualifiers: Dementia type: Alzheimer's disease Dementia behavioral disturbance: without behavioral disturbance (5) Dyslipidemia Code(s): E78.5 - HYPERLIPIDEMIA, UNSPECIFIED Status: Chronic (6) HTN (hypertension) Code(s): I10 - ESSENTIAL (PRIMARY) HYPERTENSION Status: Chronic Qualifiers: Hypertension type: essential hypertension Qualified Code(s): I10 - Essential (primary) hypertension - Plan Hg 7.5 post transfusion -: creat 1.7- suspect some lvel of CKD -: rpt CBC, BMP in AM * .
--- NOTE | 2017-07-17 19:44 | PRG ---
DATE OF SERVICE: 07/17/2017 ATTENDING PHYSICIAN: Ramses Oakes M.D. SUBJECTIVE: Ms. Joseph is a 77-year-old female who was admitted one day ago with a right hip fractu re status post ground level fall. She is postoperative day number 1 status post ORIF of the fracture . Postoperatively, in the PACU, she had tachycardia up to the 120s, which prompted her further evalu ation postoperatively on the telemetry floor. She received 1 unit of PRBC due to a hemoglobin, which was down to 7.3. She was seen this morning on the telemetry floor. Heart rate has been in sinus rh ythm in 80s without any ectopy. She is awake and alert. She reports her pain is well controlled. OBJECTIVE: VITAL SIGNS: Temperature 97.8, pulse 82, respirations 21, O2 sat 96% on 2 liters O2 nasal cannula, b lood pressure 107/70. GENERAL: Elderly female, lying in bed, in no acute distress, nontoxic appearing. HEENT: Atraumatic, normocephalic. CARDIOVASCULAR: Heart sounds normal. Regular rate and rhythm. LUNGS: Respirations even and unlabored. No respiratory distress. ABDOMEN: Soft, nontender, nondistended. EXTREMITIES: Surgical dressing in place to right hip. Cap refill brisk in all extremities. Neurova scular intact in all extremities. NEUROLOGIC: GCS 14. The patient is confused, oriented to person only. PERTINENT LABORATORY DATA: Hemoglobin is stable at 7.5 from 7.3 yesterday. ASSESSMENT: 1. Status post ground level fall. 2. Postoperative day number 1 status post open reduction internal fixation right hip. 3. Multiple recent falls. 4. Hemoglobin stable at 7.5 from 7.3 yesterday post transfusion of 1 unit. 5. Creatinine trending down, 1.7 from 1.8 yesterday and 1.9 the day before. PLAN: 1. Continue antibiotics as ordered by Orthopedic Service. 2. Monitor H&H, transfuse as indicated. 3. Continue scheduled Tylenol with morphine for breakthrough pain. 4. Monitor labs in a.m. 5. Appreciate Hospital Medicine continuing to follow. The patient was reviewed with Dr. Oakes who agrees with the plan.
[2017-07-17] MEDS: Famotidine 20 MG TAB PO SCH (20:26)
[2017-07-17] MEDS: Aspirin 81 mg Enteric Coated Tablet PO SCH (20:26)
[2017-07-18] MEDS: Sodium Chloride 0.9% 1,000 ML IV SCH ×2 (02:49→10:34)
[2017-07-18] MEDS: Morphine 4 MG/ML VIAL SLOW IVP PRN (02:50)
[2017-07-18 05:33] LABS: #Eosinphils 0.1 thou/uL (0.0-0.7); #Lymphocytes 1.2 thou/uL (1.20-3.40); #Monocytes 0.7 thou/uL (0.11-0.59); #Neutrophils 7.5 thou/uL (1.40-6.50); %Basophils 0.1 % (0.0-1.0); %Eosinophils 0.7 % (0.0-10.0); %Lymphocytes 12.8 % (21.0-51.0); %Monocytes 7.5 % (0.0-10.0); %Neutrophils 78.9 % (42.0-75.0); Hemoglobin 6.7 g/dL (12.0-16.0); Mean Corpuscular HGB CONC 33.1 g/dL (32.0-36.0); Mean Corpuscular Hemoglobin 31.7 pg (27.0-31.0); Mean Corpuscular Volume 95.7 fl (81.0-99.0); Mean Platelet Volume 6.5 fL (7.4-10.4); Platelet Count 221 thou/uL (130-400); RBC Distribution Width 13.9 % (11.5-14.5); White Blood Cell (WBC) Count 9.5 thou/uL (4.8-10.8)
[2017-07-18 05:47] LABS: Anion Gap 10 mmol/L (10-20); BUN (Urea Nitrogen) 24 mg/dL (9.8-20.1); Calc. Creatinine Clearance 43 mL/min (70-130); Calcium 8.1 mg/dL (7.8-10.44); Carbon Dioxide 22 mmol/L (23-31); Chloride 105 mmol/L (98-107); Estimated GFR-MDRD 35; Glucose 94 mg/dL (83-110); Potassium 4.4 mmol/L (3.5-5.1); Sodium 133 mmol/L (136-145)
[2017-07-18] MEDS ORDERED: Furosemide 20 MG/2 ML VIAL IVP SCH (07:45)
[2017-07-18] MEDS: Aspirin 81 mg Enteric Coated Tablet PO SCH ×2 (09:25→20:48)
--- NOTE | 2017-07-18 09:53 | PDOC.PN ---
- Subjective Encounter Start Date: 07/18/17 Encounter Start Time: 09:52 Subjective: alert, no complaints - Objective Resuscitation Status: Resuscitation Status FULL:Full Resuscitation MAR Reviewed: Yes Vital Signs & Weight: Vital Signs (12 hours) Temp Pulse Resp BP Pulse Ox 07/18/17 08:00 98.7 F 106 H 15 116/56 L 92 L 07/18/17 03:58 98.1 F 90 17 120/66 97 07/18/17 01:39 98 07/17/17 23:04 98.2 F 91 16 121/73 98 Weight Weight 185 lb I&O: 07/17/17 07/18/17 07/19/17 06:59 06:59 06:59 Intake Total 400 2415 Output Total 2450 Balance 400 -35 Result Diagrams: 07/18/17 05:02 07/18/17 05:02 Phys Exam - Physical Examination Neck: no JVD Respiratory: clear to auscultation bilateral Cardiovascular: RRR, no significant murmur Gastrointestinal: soft, non-tender, positive bowel sounds Musculoskeletal: edema present Dx/Plan (1) CATHY (acute kidney injury) Code(s): N17.9 - ACUTE KIDNEY FAILURE, UNSPECIFIED Status: Acute (2) Closed right hip fracture Code(s): S72.001A - FRACTURE OF UNSP PART OF NECK OF RIGHT FEMUR, INIT Status : Acute (3) Chronic anemia Code(s): D64.9 - ANEMIA, UNSPECIFIED Status: Chronic (4) Dementia Code(s): F03.90 - UNSPECIFIED DEMENTIA WITHOUT BEHAVIORAL DISTURBANCE Status: Chronic Qualifiers: Dementia type: Alzheimer's disease Dementia behavioral disturbance: without behavioral disturbance (5) Dyslipidemia Code(s): E78.5 - HYPERLIPIDEMIA, UNSPECIFIED Status: Chronic (6) HTN (hypertension) Code(s): I10 - ESSENTIAL (PRIMARY) HYPERTENSION Status: Chronic Qualifiers: Hypertension type: essential hypertension Qualified Code(s): I10 - Essential (primary) hypertension - Plan slow improvement in renal fcn- cont to monitor -: Hg <7, transfuse 1 unit PRBC -: cont PT/OT * .
[2017-07-18 19:58] LABS: Hemoglobin 9.3 g/dL (12.0-16.0)
[2017-07-18] MEDS: Famotidine 20 MG TAB PO SCH (20:49)
--- NOTE | 2017-07-18 22:07 | PRG ---
DATE OF SERVICE: 07/18/2017 SUBJECTIVE: The patient is status post ground level fall in which she sustained a right hip fracture for which she has undergone open reduction internal fixation for the same. The patient overnight friend d no issues. This morning, on her labs, it was noted that she had become significantly anemic with h emoglobin of 6.7. Blood products were ordered. Otherwise, the patient is stable. She is tolerating a diet. Her pain is controlled. She was scheduled to work with physical and occupational therapy t marybeth, but will not work with physical therapy until her blood products are completed. OBJECTIVE: VITAL SIGNS: Temperature is 98.7, heart rate 106, blood pressure 116/56, respirations 15, oxygen sat uration 92% on room air. GENERAL: The patient is awake and responds verbally. She is at, per her son, her baseline mentation due to her dementia, but she will interact and appears appropriate. HEENT: Unremarkable. LUNGS: Clear to auscultation with good inspiratory and expiratory effort. HEART: Regular rate and rhythm with mild tachycardia. ABDOMEN: Soft, flat, nontender with active bowel sounds. EXTREMITIES: Neurovascularly intact x4. Postoperative dressing is clean, dry and intact. LABORATORY FINDINGS: White blood cell count 9.5, hemoglobin 6.7, hematocrit 20.1, platelets 221,000. Sodium 133, potassium 4.4, chloride 105, CO2 of 22, BUN 24, creatinine 1.44. There are no radiogra phs to review this morning. ASSESSMENT AND PLAN: 1. Status post ground level fall. 2. Status post hip fracture for which she has undergone open reduction internal fixation. 3. Acute blood loss anemia. Plan will be to continue supportive care, physical and occupational therapy, transfuse packed red blo od cells today and repeat labs in the morning.
[2017-07-19 04:51] LABS: #Eosinphils 0.1 thou/uL (0.0-0.7); #Lymphocytes 1.3 thou/uL (1.20-3.40); #Monocytes 0.6 thou/uL (0.11-0.59); #Neutrophils 7.7 thou/uL (1.40-6.50); %Basophils 0.1 % (0.0-1.0); %Eosinophils 0.9 % (0.0-10.0); %Lymphocytes 13.1 % (21.0-51.0); %Monocytes 6.5 % (0.0-10.0); %Neutrophils 79.4 % (42.0-75.0); Mean Corpuscular HGB CONC 34.7 g/dL (32.0-36.0); Mean Corpuscular Hemoglobin 31.7 pg (27.0-31.0); Mean Corpuscular Volume 91.5 fl (81.0-99.0); Mean Platelet Volume 6.6 fL (7.4-10.4); Platelet Count 221 thou/uL (130-400); RBC Distribution Width 14.8 % (11.5-14.5); Red Blood Cell (RBC) Count 2.83 mill/uL (4.20-5.40); White Blood Cell (WBC) Count 9.6 thou/uL (4.8-10.8)
[2017-07-19 05:01] LABS: Anion Gap 10 mmol/L (10-20); BUN (Urea Nitrogen) 20 mg/dL (9.8-20.1); Calc. Creatinine Clearance 42 mL/min (70-130); Calcium 8.6 mg/dL (7.8-10.44); Carbon Dioxide 25 mmol/L (23-31); Chloride 103 mmol/L (98-107); Estimated GFR-MDRD 34; Glucose 92 mg/dL (83-110); Magnesium 1.7 mg/dL (1.6-2.6); Phosphorus 2.8 mg/dL (2.3-4.7); Potassium 4.1 mmol/L (3.5-5.1); Sodium 134 mmol/L (136-145)
[2017-07-19] MEDS: Sodium Chloride 0.9% 1,000 ML IV SCH ×3 (07:16→18:34)
[2017-07-19] MEDS: Aspirin 81 mg Enteric Coated Tablet PO SCH ×2 (09:03→21:18)
--- NOTE | 2017-07-19 12:30 | PDOC.PN ---
- Subjective Encounter Start Date: 07/19/17 Encounter Start Time: 12:28 Subjective: alert, doing well - Objective Resuscitation Status: Resuscitation Status FULL:Full Resuscitation MAR Reviewed: Yes Vital Signs & Weight: Vital Signs (12 hours) Temp Pulse Resp BP Pulse Ox 07/19/17 12:00 98.5 F 76 14 152/82 H 98 07/19/17 10:41 96 07/19/17 08:00 98.1 F 99 16 165/83 H 96 07/19/17 04:58 98.6 F 96 16 144/69 H 97 07/19/17 00:29 95 Weight Weight 185 lb I&O: 07/18/17 07/19/17 07/20/17 06:59 06:59 06:59 Intake Total 2415 1805 Output Total 2450 2525 1000 Balance -35 -720 -1000 Result Diagrams: 07/19/17 03:47 07/19/17 03:47 Phys Exam - Physical Examination Neck: no JVD Respiratory: clear to auscultation bilateral Cardiovascular: RRR, no significant murmur Gastrointestinal: soft, non-tender, positive bowel sounds Musculoskeletal: edema present Dx/Plan (1) CATHY (acute kidney injury) Code(s): N17.9 - ACUTE KIDNEY FAILURE, UNSPECIFIED Status: Ruled-out (2) Closed right hip fracture Code(s): S72.001A - FRACTURE OF UNSP PART OF NECK OF RIGHT FEMUR, INIT Status : Acute (3) Chronic anemia Code(s): D64.9 - ANEMIA, UNSPECIFIED Status: Chronic (4) Dementia Code(s): F03.90 - UNSPECIFIED DEMENTIA WITHOUT BEHAVIORAL DISTURBANCE Status: Chronic Qualifiers: Dementia type: Alzheimer's disease Dementia behavioral disturbance: without behavioral disturbance (5) Dyslipidemia Code(s): E78.5 - HYPERLIPIDEMIA, UNSPECIFIED Status: Chronic (6) HTN (hypertension) Code(s): I10 - ESSENTIAL (PRIMARY) HYPERTENSION Status: Chronic Qualifiers: Hypertension type: essential hypertension Qualified Code(s): I10 - Essential (primary) hypertension (7) CKD (chronic kidney disease) stage 3, GFR 30-59 ml/min Code(s): N18.3 - CHRONIC KIDNEY DISEASE, STAGE 3 (MODERATE) Status: Acute - Plan cont PT/OT -: Hg stable post transfusion -: renal fcn stable at ckd 3 level * .
[2017-07-19] MEDS: Famotidine 20 MG TAB PO SCH (21:18)
--- NOTE | 2017-07-19 23:04 | PRG ---
DATE OF SERVICE: 07/20/2017 SUBJECTIVE: Patient is status post ground-level fall, in which she sustained a right hip fracture an d she has undergone subsequent open reduction and internal fixation of the same. Patient had no issu es overnight. Yesterday, she was transfused 2 units of packed red blood cells for hemoglobin that friend d dropped to 6.7. This morning, she was able to work with physical and occupational therapy and at m y time of visiting her, she did just lie down and went to sleep after her therapy session. The thera pist report that she did well considering she is postop day #2. OBJECTIVE: VITAL SIGNS: Temperature is 98.1, heart rate 99, respirations 16, blood pressure 165/83, oxygen satu ration 96% on room air. GENERAL: Patient is resting comfortably in bed. She appears in no distress. LUNGS: Clear to auscultation. HEART: Regular rate and rhythm. ABDOMEN: Soft, flat with active bowel sounds. EXTREMITIES: Neurovascularly intact. Capillary refill less than 3 seconds and pulses 2+. Postop dr perales is clean, dry, and intact. LABORATORY FINDINGS: White blood cell count 9.6, hemoglobin 9.0, hematocrit 25.9, platelets 221. So dium 134, potassium 4.1, chloride 103, CO2 of 25, BUN 20, creatinine 1.50. Magnesium 1.7, phosphorus 2.8. There are no radiographs to review this morning. ASSESSMENT AND PLAN: 1. Status post ground-level fall. 2. Status post open reduction and internal fixation of right hip fracture. PLAN: We will be to continue physical and occupational therapy, supportive care, pain control. We w ill resume her home meds as appropriate and await final placement decision.
[2017-07-20] MEDS: Morphine 4 MG/ML VIAL SLOW IVP PRN ×2 (02:51→14:59)
[2017-07-20 05:16] LABS: #Eosinphils 0.3 thou/uL (0.0-0.7); #Lymphocytes 1.4 thou/uL (1.20-3.40); #Monocytes 0.7 thou/uL (0.11-0.59); #Neutrophils 6.6 thou/uL (1.40-6.50); %Eosinophils 2.9 % (0.0-10.0); %Lymphocytes 15.4 % (21.0-51.0); %Monocytes 7.3 % (0.0-10.0); %Neutrophils 74.3 % (42.0-75.0); Hemoglobin 8.8 g/dL (12.0-16.0); Mean Corpuscular HGB CONC 33.2 g/dL (32.0-36.0); Mean Corpuscular Hemoglobin 31.2 pg (27.0-31.0); Mean Corpuscular Volume 93.8 fl (81.0-99.0); Mean Platelet Volume 6.4 fL (7.4-10.4); Platelet Count 246 thou/uL (130-400); RBC Distribution Width 14.4 % (11.5-14.5); Red Blood Cell (RBC) Count 2.83 mill/uL (4.20-5.40); White Blood Cell (WBC) Count 8.9 thou/uL (4.8-10.8)
[2017-07-20 05:27] LABS: Anion Gap 8 mmol/L (10-20); BUN (Urea Nitrogen) 21 mg/dL (9.8-20.1); Calc. Creatinine Clearance 48 mL/min (70-130); Calcium 8.6 mg/dL (7.8-10.44); Carbon Dioxide 27 mmol/L (23-31); Chloride 105 mmol/L (98-107); Estimated GFR-MDRD 40; Glucose 99 mg/dL (83-110); Magnesium 1.8 mg/dL (1.6-2.6); Phosphorus 3.3 mg/dL (2.3-4.7); Sodium 136 mmol/L (136-145)
[2017-07-20] MEDS ORDERED: DEXTROMETHORPHAN HBR PO PRN (09:00)
[2017-07-20] MEDS ORDERED: QUINIDINE PO PRN (09:00)
[2017-07-20] MEDS: Polyethylene Glycol 3350 17 GM Packet PO SCH (09:17)
[2017-07-20] MEDS: Clopidogrel Bisulfate 75 MG TAB PO SCH (09:18)
[2017-07-20] MEDS: Aspirin 81 mg Enteric Coated Tablet PO SCH ×2 (09:18→22:30)
[2017-07-20] MEDS: Donepezil HCl 10 MG TAB PO SCH (09:19)
[2017-07-20] MEDS: Lisinopril 5 MG TAB PO SCH (09:19)
[2017-07-20] MEDS: Senokot S 8.6-50 MG TAB PO SCH ×2 (09:20→22:31)
--- NOTE | 2017-07-20 11:40 | PDOC.PN ---
- Subjective Encounter Start Date: 07/20/17 Encounter Start Time: 11:38 -: old records requested/rev Pt seen and examined, chart reviewed in its entirety, this is my first visit with this patient Follow up for CKD 3, acute blood loss anemia, HTN, HLD for medical management as a consult form orthopedics for hip fracture Pt confused but pleasant, no acute events reported overnight, no complaints all systems reviewed and neg for all except as above - Objective Resuscitation Status: Resuscitation Status FULL:Full Resuscitation MAR Reviewed: Yes Vital Signs & Weight: Vital Signs (12 hours) Temp Pulse Resp BP BP Pulse Ox 07/20/17 10:14 64 20 94 L 07/20/17 09:19 72 142/82 H 07/20/17 08:00 98.3 F 64 20 98 07/20/17 07:29 98.3 F 72 18 142/82 H 98 07/20/17 06:38 94 L 07/20/17 04:36 98.4 F 68 99 H 142/79 H 16 L 07/20/17 00:41 98.2 F 77 16 143/80 H 99 Weight Weight 185 lb I&O: 07/19/17 07/20/17 07/21/17 06:59 06:59 06:59 Intake Total 1805 240 Output Total 2525 1000 Balance -720 -760 Result Diagrams: 07/20/17 04:53 07/20/17 04:53 Radiology Reviewed by me: Yes EKG Reviewed by me: Yes Phys Exam - Physical Examination Constitutional: NAD in C collar HEENT: PERRLA, moist MMs, sclera anicteric, oral pharynx no lesions Neck: no nodes, no JVD, supple, full ROM Respiratory: no wheezing, no rales, no rhonchi, clear to auscultation bilateral Cardiovascular: RRR, no significant murmur, no rub Gastrointestinal: soft, non-tender, no distention, positive bowel sounds Musculoskeletal: no edema, pulses present Neurological: non-focal, normal sensation, moves all 4 limbs Lymphatic: no nodes Psychiatric: normal affect Deviation from normal: oriented to person only Skin: no rash, normal turgor, cap refill <2 seconds Dx/Plan (1) Acute blood loss anemia Code(s): D62 - ACUTE POSTHEMORRHAGIC ANEMIA Status: Acute Comment: s/p transfusion, H/H stable. (2) CKD (chronic kidney disease) stage 3, GFR 30-59 ml/min Code(s): N18.3 - CHRONIC KIDNEY DISEASE, STAGE 3 (MODERATE) Status: Chronic Comment: Cr stable (3) Closed right hip fracture Code(s): S72.001A - FRACTURE OF UNSP PART OF NECK OF RIGHT FEMUR, INIT Status : Acute Qualifiers: Encounter type: initial encounter Qualified Code(s): S72.001A - Fracture of unspecified part of neck of right femur, initial encounter for closed fracture Comment: s/p repair by ortho. H/H now stable. (4) Chronic anemia Code(s): D64.9 - ANEMIA, UNSPECIFIED Status: Chronic (5) Dementia Code(s): F03.90 - UNSPECIFIED DEMENTIA WITHOUT BEHAVIORAL DISTURBANCE Status: Chronic Qualifiers: Dementia type: Alzheimer's disease Dementia behavioral disturbance: without behavioral disturbance (6) Dyslipidemia Code(s): E78.5 - HYPERLIPIDEMIA, UNSPECIFIED Status: Chronic (7) HTN (hypertension) Code(s): I10 - ESSENTIAL (PRIMARY) HYPERTENSION Status: Chronic Qualifiers: Hypertension type: essential hypertension Qualified Code(s): I10 - Essential (primary) hypertension - Plan cont current plan of care, PT/OT * .
[2017-07-20] MEDS ORDERED: Acetaminophen 325 MG TAB PO PRN (16:22)
[2017-07-20] MEDS ORDERED: traMADol HCl 50 MG TAB PO PRN (16:22)
[2017-07-20] MEDS ORDERED: Non-Formulary Item 1 EACH (Biotin [Biotin] 1 MG) PO SCH (21:00)
[2017-07-20] MEDS ORDERED: Simvastatin 20 MG TAB PO SCH (21:00)
[2017-07-20] MEDS: Acetaminophen 500 MG TAB PO SCH (22:30)
[2017-07-20] MEDS: Famotidine 20 MG TAB PO SCH (22:30)
--- NOTE | 2017-07-20 22:58 | PRG ---
DATE OF SERVICE: 07/20/2017 SUBJECTIVE: The patient is status post ground level fall, in which she sustained a right hip fractur e and has undergone subsequent open reduction and internal fixation of the same. The patient has had no issues overnight. This morning, was working with physical therapy. They stated that she did pro humphrey a little bit, but still having a fair amount of pain, which due to her baseline confusion and s ome agitation, they are not sure how much was agitation versus pain, but we will make adjustments to her pain medications and that we have resumed all of her home meds that we could. OBJECTIVE: VITAL SIGNS: Temperature is 98.3, heart rate 64, blood pressure 153/78, respirations 20, oxygen satu ration is 94% on room air. GENERAL: The patient is resting in bed. She has just completed physical therapy and appears tired. She does follow simple commands and appears to be at her baseline. HEENT: Unremarkable. LUNGS: Clear to auscultation with moderate inspiratory and expiratory effort. HEART: Regular rate and rhythm. ABDOMEN: Soft, flat, nontender with active bowel sounds. EXTREMITIES: Neurovascularly intact x4. Postop dressing is clean, dry, and intact. LABORATORY RESULTS: White blood cell count 8.9, hemoglobin 8.8, hematocrit 26.5, platelets 246. Sod ium 136, potassium 4.0, chloride 105, CO2 of 27, BUN 21, creatinine 1.30, magnesium 1.8, phosphorus 3 .3. There are no radiographs to review this morning. ASSESSMENT AND PLAN: 1. Status post ground level fall. 2. Status post open reduction and internal fixation of right hip fracture. Plan will be to continue physical and occupational therapy and supportive care and await placement [facility], which is likely a skilled facility.
[2017-07-21] MEDS: Acetaminophen 500 MG TAB PO SCH ×3 (03:23→13:25)
[2017-07-21 05:00] LABS: #Eosinphils 0.3 thou/uL (0.0-0.7); #Lymphocytes 1.7 thou/uL (1.20-3.40); #Monocytes 0.7 thou/uL (0.11-0.59); #Neutrophils 5.8 thou/uL (1.40-6.50); %Basophils 0.5 % (0.0-1.0); %Eosinophils 3.7 % (0.0-10.0); %Lymphocytes 19.9 % (21.0-51.0); %Monocytes 8.1 % (0.0-10.0); %Neutrophils 67.9 % (42.0-75.0); Hemoglobin 9.4 g/dL (12.0-16.0); Mean Corpuscular HGB CONC 32.7 g/dL (32.0-36.0); Mean Corpuscular Hemoglobin 30.5 pg (27.0-31.0); Mean Corpuscular Volume 93.5 fl (81.0-99.0); Mean Platelet Volume 6.4 fL (7.4-10.4); Platelet Count 290 thou/uL (130-400); RBC Distribution Width 14.1 % (11.5-14.5); Red Blood Cell (RBC) Count 3.09 mill/uL (4.20-5.40); White Blood Cell (WBC) Count 8.5 thou/uL (4.8-10.8)
[2017-07-21 05:17] LABS: Anion Gap 8 mmol/L (10-20); BUN (Urea Nitrogen) 24 mg/dL (9.8-20.1); Calc. Creatinine Clearance 48 mL/min (70-130); Calcium 9.1 mg/dL (7.8-10.44); Carbon Dioxide 27 mmol/L (23-31); Chloride 106 mmol/L (98-107); Estimated GFR-MDRD 39; Glucose 88 mg/dL (83-110); Potassium 4.2 mmol/L (3.5-5.1); Sodium 137 mmol/L (136-145)
[2017-07-21] MEDS: Polyethylene Glycol 3350 17 GM Packet PO SCH ×2 (09:29→09:33)
[2017-07-21] MEDS: Donepezil HCl 10 MG TAB PO SCH (09:30)
[2017-07-21] MEDS: Lisinopril 5 MG TAB PO SCH (09:30)
[2017-07-21] MEDS: Clopidogrel Bisulfate 75 MG TAB PO SCH (09:30)
[2017-07-21] MEDS: Senokot S 8.6-50 MG TAB PO SCH ×2 (09:30→09:33)
[2017-07-21] MEDS: Aspirin 81 mg Enteric Coated Tablet PO SCH (09:31)
[2017-07-21 15:35] VITALS: BP 145/80; TEMP 98
--- NOTE | 2017-07-21 15:47 | PDOC.PN ---
- Subjective Encounter Start Date: 07/21/17 Encounter Start Time: 08:45 Afebrile, no acute events. pleasantly demented, deniespain. apparently screams out and hit when being moved for PT. No other acute events noted. ROS attempted, but pt denies. unsure of reliability - Objective Resuscitation Status: Resuscitation Status FULL:Full Resuscitation MAR Reviewed: Yes Vital Signs & Weight: Vital Signs (12 hours) Temp Pulse Resp BP Pulse Ox 07/21/17 15:25 98 F 75 20 145/80 H 96 07/21/17 10:50 98.5 F 73 20 142/83 H 93 L 07/21/17 09:30 68 07/21/17 08:00 97.8 F 68 16 95 07/21/17 07:10 97.8 F 68 16 128/75 95 Weight Weight 185 lb I&O: 07/20/17 07/21/17 07/22/17 06:59 06:59 06:59 Intake Total 240 550 50 Output Total 1000 Balance -760 550 50 Result Diagrams: 07/21/17 04:14 07/21/17 04:14 Phys Exam - Physical Examination Constitutional: NAD HEENT: PERRLA, moist MMs, sclera anicteric, oral pharynx no lesions Neck: no nodes, no JVD, supple, full ROM Respiratory: no wheezing, no rales, no rhonchi, clear to auscultation bilateral Cardiovascular: RRR, no significant murmur, no rub Gastrointestinal: soft, non-tender, no distention, positive bowel sounds Musculoskeletal: pulses present, edema present Neurological: non-focal, normal sensation Lymphatic: no nodes Psychiatric: normal affect Skin: no rash, normal turgor, cap refill <2 seconds Dx/Plan (1) Acute blood loss anemia Code(s): D62 - ACUTE POSTHEMORRHAGIC ANEMIA Status: Acute Comment: s/p transfusion, H/H stable. Up to 9.4 today (2) CKD (chronic kidney disease) stage 3, GFR 30-59 ml/min Code(s): N18.3 - CHRONIC KIDNEY DISEASE, STAGE 3 (MODERATE) Status: Chronic Comment: Cr stable (3) Closed right hip fracture Code(s): S72.001A - FRACTURE OF UNSP PART OF NECK OF RIGHT FEMUR, INIT Status : Acute Qualifiers: Encounter type: initial encounter Qualified Code(s): S72.001A - Fracture of unspecified part of neck of right femur, initial encounter for closed fracture Comment: s/p repair by ortho. H/H now stable. (4) Chronic anemia Code(s): D64.9 - ANEMIA, UNSPECIFIED Status: Chronic (5) Dementia Code(s): F03.90 - UNSPECIFIED DEMENTIA WITHOUT BEHAVIORAL DISTURBANCE Status: Chronic Qualifiers: Dementia type: Alzheimer's disease Dementia behavioral disturbance: without behavioral disturbance (6) Dyslipidemia Code(s): E78.5 - HYPERLIPIDEMIA, UNSPECIFIED Status: Chronic (7) HTN (hypertension) Code(s): I10 - ESSENTIAL (PRIMARY) HYPERTENSION Status: Chronic Qualifiers: Hypertension type: essential hypertension Qualified Code(s): I10 - Essential (primary) hypertension - Plan cont current plan of care, PT/OT, social services specialist, out of bed/ambulate * . Dispo per case management. per review, [facility] recommended by PCP Dr Gómez
== END 2017-07-21 19:14 | DRG 470 ==
LOC: ERS 10:59 → SURG A 12:49 → 2NO 07-16 16:21 → SURG A 07-17 09:29
PROVIDERS: ADMIT Orthopaedic Surgery; ATTEND Orthopaedic Surgery
PROC: 0SRR0J9 Replacement of Right Hip Joint, Femoral Surface with Synthetic Substitute, Cemented, Open Approach (ICD-10-PCS; principal; 2017-07-16)
DX: S72.001A Fracture of unspecified part of neck of right femur, initial encounter for closed fracture (principal); D62 Acute posthemorrhagic anemia; N17.9 Acute kidney failure, unspecified; G30.9 Alzheimer's disease, unspecified; F02.80 Dementia in other diseases classified elsewhere, unspecified severity, without behavioral disturbance, psychotic disturbance, mood disturbance, and anxiety; E78.5 Hyperlipidemia, unspecified; N18.3 Chronic kidney disease, stage 3 (moderate); I12.9 Hypertensive chronic kidney disease with stage 1 through stage 4 chronic kidney disease, or unspecified chronic kidney disease; Z86.73 Personal history of transient ischemic attack (TIA), and cerebral infarction without residual deficits; Z88.0 Allergy status to penicillin; Z88.8 Allergy status to other drugs, medicaments and biological substances; Z79.02 Long term (current) use of antithrombotics/antiplatelets; Z79.82 Long term (current) use of aspirin; Z79.899 Other long term (current) drug therapy; Z90.49 Acquired absence of other specified parts of digestive tract; Z96.653 Presence of artificial knee joint, bilateral; G89.11 Acute pain due to trauma; W18.30XA Fall on same level, unspecified, initial encounter
CPT/HCPCS: 36415; 36430; 51702; 71045; 72170; 80048; 80053; 81003; 81015; 83735; 84100; 85025; 86850; 86900; 86901; 87086; 93005; 94640; 96374; A4216; C1713; C1781; G0390; G8978-GP-CM; G8979-GP-CL; G8981-GO-CM; G8982-GO-CK; G8996-GN-CK; G8997-GN-CJ; J0131; J1100; J1940; J1956; J2270; J2704; J3010; J3490; P9016; Q0162; S0028